=== PATIENT | female | born 1945 | race Caucasian/White ===

== ENCOUNTER → 2017-03-15 | Outpatient (CLI) | payer OTHER ==
[~2017-03-15] MED LIST: ALBUAER19 INH; ALT/10 PO; ASPI-232 PO; CALC0.2510 PO; CHOL1000 PO; CIPR-255 PO; CLON0.2T11 PO; CLR/5 PO; CMD5 PO; FLUD0.1T10 PO; HYG/25 PO; LEVO100T7 PO; LEVO88TA PO; MAGN1CAP2 PO; NEXAVAR PO; NIFE30TA83 PO; OXYC7.5T65 PO; PREDPOW63 PO; RXC5 PO; SENNTAB23 PO; SNK PO; SODI650T8 PO; SYMIN8045 INH; TACR1CAP PO; TRIA1SPR4 INTNAS; VNTHFA/IN INH
== END | disposition home or self-care (01) ==
LOC: C.PATHSPEC 18:02
PROVIDERS: ATTEND Urology
DX: N32.89 Other specified disorders of bladder (principal); R82.8 Abnormal findings on cytological and histological examination of urine

== ENCOUNTER 2017-04-01 05:12 | Day surgery (SDC) | payer OTHER ==
[2017-03-24 09:27] VITALS: BMI 24.0
--- NOTE | 2017-03-24 09:49 | PAT Medication Instructions ---
Service Date Mar 24, 2017. Current Home Medication List Albuterol Hfa (Ventolin Hfa), 2 PUFFS INH Q6H PRN for PRN Aspirin (Aspir-81), 1 TAB PO QAM Budesonide/Formoterol Fumarate (Symbicort 80-4.5 Mcg/Act), 2 PUFF INH PRN Calcitriol (Rocaltrol Cap), 0.25 MCG PO QAM Chlorthalidone (Hygroton), 50 MG PO HS Cholecalciferol (Vitamin D3), 1,000 UNITS PO QAM Clonidine Hcl (Catapres), 0.1 MG PO BID Desloratadine (Clarinex), 5 MG PO QAM Fludrocortisone Acetate (Florinef), 0.1 MG PO QAM Levothyroxine Sodium (Levothyroxine Sodium), 1 TAB PO QAM Magnesium Oxide (Mg Supplement (Magnesium), 200 MG PO BID Nifedipine Ext Rel (Procardia Xl Ext Rel), 30 MG PO QAM Sennosides-Docusate Sodium (Stool Softener), 1 TAB PO QAM Sodium Bicarbonate (Sodium Bicarbonate), 650 MG PO BID Tacrolimus (Prograf), 1 MG PO BID Triamcinolone Acetonide (Nasal (Nasacort Allergy 24Hr), 2 SPRAYS INTNAS PRN [Nexavar], 400 MG PO QAM [Prednisone], 1 TAB PO QPM 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 Instructions For Your Scheduled Surgery - Hold the following medications for 10 days per your surgeon's instructions: Aspirin (Aspir-81), 1 TAB PO QAM - Hold the following medications the morning of surgery: Magnesium Oxide (Mg Supplement (Magnesium), 200 MG PO BID Sennosides-Docusate Sodium (Stool Softener), 1 TAB PO QAM Sodium Bicarbonate (Sodium Bicarbonate), 650 MG PO BID Calcitriol (Rocaltrol Cap), 0.25 MCG PO QAM Desloratadine (Clarinex), 5 MG PO QAM - Take the following medications the morning of surgery with a sip of water: [Nexavar], 400 MG PO QAM Triamcinolone Acetonide (Nasal (Nasacort Allergy 24Hr), 2 SPRAYS INTNAS PRN (if needed) Fludrocortisone Acetate (Florinef), 0.1 MG PO QAM Levothyroxine Sodium (Levothyroxine Sodium), 1 TAB PO QAM Clonidine Hcl (Catapres), 0.1 MG PO BID Cholecalciferol (Vitamin D3), 1,000 UNITS PO QAM Tacrolimus (Prograf), 1 MG PO BID Nifedipine Ext Rel (Procardia Xl Ext Rel), 30 MG PO QAM Albuterol Hfa (Ventolin Hfa), 2 PUFFS INH Q6H PRN (if needed, and BRING WITH YOU THE DAY OF THE SURGERY) Budesonide/Formoterol Fumarate (Symbicort 80-4.5 Mcg/Act), 2 PUFF INH PRN (if needed) - Take the following medications as scheduled the night before surgery: Triamcinolone Acetonide (Nasal (Nasacort Allergy 24Hr), 2 SPRAYS INTNAS PRN (if needed) Clonidine Hcl (Catapres), 0.1 MG PO BID Tacrolimus (Prograf), 1 MG PO BID Sodium Bicarbonate (Sodium Bicarbonate), 650 MG PO BID Magnesium Oxide (Mg Supplement (Magnesium), 200 MG PO BID Albuterol Hfa (Ventolin Hfa), 2 PUFFS INH Q6H PRN (if needed) Chlorthalidone (Hygroton), 50 MG PO HS Budesonide/Formoterol Fumarate (Symbicort 80-4.5 Mcg/Act), 2 PUFF INH PRN (if needed) [Prednisone], 1 TAB PO QPM PRN for RN (if needed) If you have any questions please call us at [phone] or [phone] or [phone]
--- NOTE | 2017-03-24 11:14 | DIAGNOSTIC IMAGING REPORT ---
CHEST 2 VIEWS ROUTINE CLINICAL HISTORY: Preoperative chest COMPARISON STUDY: 05/08/2015 FINDINGS: The cardiac and mediastinal contours remain stable. There is a horizontal bandlike opacity within the left midlung zone extending to the hilum. There are right upper lobe bandlike opacities, also similar to the preceding study. There is no acute parenchymal consolidation. There is no failure. There are no pleural effusions. There are multiple surgical clips within the upper abdomen.[ IMPRESSION: Bilateral parenchymal opacities, similar to the preceding April 2015 study. No acute parenchymal consolidation. No evidence of failure. Electronically signed by: Sohail Curtis M.D. 03/24/2017 11:12 AM Dictated Date/Time: 03/24/2017 11:11 AM
[~2017-04-01] VITALS: Ht 170.2 cm; Wt 69.0 kg
[~2017-04-01 05:12] MED LIST changes: -ALBUAER19 INH; -ALT/10 PO; -CIPR-255 PO; -CMD5 PO; -LEVO88TA PO; -OXYC7.5T65 PO; -RXC5 PO; -SNK PO
[2017-04-01 05:37] VITALS: BP 157/88; PULSE 81; TEMP 36.8; O2SAT 98; Ht 170.2 cm; Wt 69.0 kg
[2017-04-01 05:40] LABS: HEMATOCRIT 35.3 % (37-47); MEAN CELL VOLUME 98.9 fL (80-100); MEAN CORPUSCULAR HEMOGLOBIN 32.8 pg (25-34); MEAN PLATELET VOLUME 9.4 fL (7.4-10.4); PLATELET COUNT 157 K/uL (130-400); RED BLOOD COUNT 3.57 M/uL (4.2-5.4); WHITE BLOOD COUNT 7.76 K/uL (4.8-10.8)
[2017-04-01 05:54] LABS: MEAN CORPUSCULAR HGB CONC 33.1 g/dl (32-36)
[2017-04-01] MEDS ORDERED: SODIUM CHLORIDE 0.9% 1000ML 1,000 ML IV SCH (06:00)
[2017-04-01] MEDS ORDERED: CIPROFLOXACIN / D5W 400 MG IV SCH (06:00)
--- NOTE | 2017-04-01 07:03 | History & Physical Bridge Note ---
H&P Re-Evaluation Bridge Note: I have examined the patient, reviewed the History & Physical and in the interval since the performance of the History & Physical I have noted the following changes of clinical significance: No changes noted Possible bilateral Retrograde, Possible TURBT
[2017-04-01] MEDS ORDERED: CIPR-255 PO (07:11)
[2017-04-01] MEDS ORDERED: OXYC7.5T65 PO (07:11)
--- NOTE | 2017-04-01 07:12 | Discharge Instructions ---
Discharge Instructions Date of Service Apr 01, 2017. Admission Reason for Admission: Bladder Lesion Discharge Discharge Diagnosis / Problem: External Lesion near bladder Discharge Goals Goal(s): Decrease discomfort, Improve function Activity Recommendations Activity Limitations: resume your previous activity Lifting Limitations: no more than 10 pounds Exercise/Sports Limitations: as tolerated Shower/Bathe: no limitations . Instructions / Follow-Up Instructions / Follow-Up May have blood in urine. May have pelvic discomfort. Call if any fevers or chills or severe discomfort. Current Hospital Diet Hospital Diet(s): Regular Diet Discharge Diet Recommended Diet: Regular Diet Procedures Procedures Performed: Cysto, Bilateral Retrograde Pyelogram Pending Studies Studies pending at discharge: no Medical Emergencies . Who to Call and When: Medical Emergencies: If at any time you feel your situation is an emergency, please call 911 immediately. . Non-Emergent Contact Non-Emergency issues call your: Primary Care Provider, Urologist Call Non-Emergent contact if: you have a fever, temperature is above 101.5, your pain is not controlled . . "Provider Documentation" section prepared by Dante Carrion,. . VTE Core Measure Inpt VTE Proph given/why not?: Georgi Fisher, SCD's
[2017-04-01] MEDS ORDERED: FENTANYL CITRATE INJ 50 MCG/1 ML 2 ML VIAL ONE (07:13)
[2017-04-01] MEDS ORDERED: PROPOFOL IV EMULSION 10 MG/ML 20 ML VIAL IV ONE (07:13)
--- NOTE | 2017-04-01 07:17 | [facility] Operative Report ---
Operative Report Operative Date Apr 01, 2017. Pre-Operative Diagnosis Bladder lesion, Gross Hematuria Post-Operative Diagnosis Same, 2 x lesion of posterior pubic bone. Procedure(s) Performed Cysto, Bilateral Retrograde Pyelogram Surgeon Murali Vice President Quality Improvement Surgeon(s) None Estimated Blood Loss 0cc Findings Bladder clear of masses, lesions, or other areas of concern. No obstruction. Bilateral Retrograde without filling defects. Two approx 5mm external masses at dome behind pubic bone. Palpable on pelvic exam. Fixed to pubic bone, without bladder invasion. Fluids See Anes Report Specimens None Drains None Anesthesia General Complication(s) None Disposition Recovery Room / PACU Indications Bladder lesions on imaging. Long conversation of risks and benefits. Patient agreeable and consented. Description of Procedure Patient was consented and brought back to the operating room. Patient was placed under anesthesia in the supine position. Patient was prepped and draped in the regular sterile fashion. A time out was completed. A 30degree Cystoscope was placed into the bladder and the entire bladder was examined. The UO's were identified. Each UO was cannulized with a catheter and a retrograde pyelogram was completed. No filling defects or other areas of concern on retrograde. Prompt drainage after catheter removal. The entire bladder was examined with both the 30 and 70 degree cystoscope. No lesions, masses, or other areas of concern were found within the bladder. At the dome, 2 discreet lesions were visualized appearing to compress the bladder. No invasion into bladder tissue was visualized. Images were captured and printed and placed into the patient's chart. The bladder was emptied. The scope was removed. A pelvic exam was completed and two firm/rubbery nodules were palpated posterior to the pubic bone. Both were fixed to the bone and approximately 5mm each. Due to position, biopsy of lesions was not able to be approached. No other masses or abnormalities were discovered. Patient had a grade 2-3 rectocele and no significant cystocele. The patient was cleaned, aroused from anesthesia, and transferred to the pacu in stable condition having tolerated the procedure well with no complications. I was present and participated in all aspects of the procedure. The patient will be monitored in the PACU until transferred. I attest to the content of the Intraoperative Record and any orders documented therein. Any exceptions are noted below.
[2017-04-01] MEDS ORDERED: CONRAY 30% 150ML BOTTLE ONE (07:30)
[2017-04-01] MEDS ORDERED: OXYCODONE/ACETAMINOPHEN 7.5-325 TAB PO PRN (08:00)
[2017-04-01] MEDS ORDERED: FENTANYL CITRATE INJ 50 MCG/1 ML 2 ML VIAL IV PRN (08:00)
[2017-04-01] MEDS ORDERED: ATROPINE SULFATE 0.1 MG/ML 5ML SYR IV PRN (08:00)
[2017-04-01] MEDS ORDERED: EpHEDrine SULFATE INJ 50 MG/ML AMP IV PRN (08:00)
[2017-04-01] MEDS ORDERED: ONDANSETRON INJ 2 MG/ML 2 ML VIAL IV PRN (08:00)
--- NOTE | 2017-04-01 08:00 | Anesthesiology Progress Note ---
Anesthesia Post Op Note Date & Time Apr 01, 2017 at 08:00 Vital Signs Pain Intensity: 0 Vital Signs Past 12 Hours Date Time Temp Pulse Resp B/P (MAP) Pulse Ox O2 Delivery O2 Flow Rate FiO2 04/01/17 05:37 36.8 81 20 157/88 (111) 98 Room Air Notes Mental Status: alert / awake / arousable, participated in evaluation Pt Amnestic to Procedure: Yes Nausea / Vomiting: adequately controlled Pain: adequately controlled Airway Patency, RR, SpO2: stable & adequate BP & HR: stable & adequate Hydration State: stable & adequate Anesthetic Complications: no major complications apparent
[2017-04-01 08:35] VITALS: BP 130/76; PULSE 71; TEMP 36.5; O2SAT 98
[2017-04-01 09:05] VITALS: BP 142/74; PULSE 66; O2SAT 98
[2017-04-01 09:27] VITALS: BP 149/77; PULSE 74; TEMP 36.4; O2SAT 97
--- NOTE | 2017-04-01 09:45 | DIAGNOSTIC IMAGING REPORT ---
RETROGRADE INCLUDES KUB HISTORY: Bladder abnormality. FLUOROSCOPY TIME: 12 seconds. FINDINGS: 7 fluoroscopic spot images were submitted for review. Opacification of the bilateral ureters and renal collecting systems and a retrograde fashion. No suspicious filling defects identified within the proximal to mid ureters are renal collecting systems. Multiple surgical clips within the upper abdomen. IMPRESSION: Fluoroscopy provided for retrograde opacification of the ureters and renal collecting systems bilaterally.. Electronically signed by: Miguel Trevizo M.D. 04/01/2017 9:44 AM Dictated Date/Time: 04/01/2017 9:41 AM
== END 2017-04-01 09:31 | disposition home or self-care (01) ==
LOC: C.ACU 05:12
PROVIDERS: ATTEND Urology
DX: M89.9 Disorder of bone, unspecified (principal); R31.0 Gross hematuria; N81.6 Rectocele; C34.90 Malignant neoplasm of unspecified part of unspecified bronchus or lung; I10 Essential (primary) hypertension; M19.90 Unspecified osteoarthritis, unspecified site; Z94.4 Liver transplant status; Z79.82 Long term (current) use of aspirin; Z79.899 Other long term (current) drug therapy